=== PATIENT | female | born 1985 | race Caucasian/White ===

== ENCOUNTER 2017-03-24 19:22 | Emergency (ER) | payer MEDICAID, OTHER ==
[~2017-03-24] VITALS: Ht 154.9 cm; Wt 86.0 kg
[~2017-03-24 19:22] MED LIST: ACET325T26 PO; LORA1TAB PO; PHEN100C4 PO; PHEN125O11 PO; PHEN200C3 PO; PHEN30CA PO; QUET50TA5 PO; THIA50TA2 PO; VALP250C59 PO; VALP500S PO
[2017-03-24 19:24] VITALS: BP 127/85
== END 2017-03-24 20:11 | disposition home or self-care (01) ==
LOC: ED 20:02
DX: Z76.0 Encounter for issue of repeat prescription (principal); F17.210 Nicotine dependence, cigarettes, uncomplicated; Z88.1 Allergy status to other antibiotic agents; G40.909 Epilepsy, unspecified, not intractable, without status epilepticus
CPT/HCPCS: 99283; 99284

== ENCOUNTER 2018-01-31 19:11 | Emergency (ER) | payer MEDICAID ==
[~2018-01-31] VITALS: Ht 154.9 cm; Wt 92.8 kg
[2018-01-31 19:16] VITALS: BP 132/88
== END 2018-01-31 20:07 | disposition home or self-care (01) ==
LOC: ED 19:45
DX: F41.9 Anxiety disorder, unspecified (principal); Z76.0 Encounter for issue of repeat prescription; F32.9 Major depressive disorder, single episode, unspecified; G40.909 Epilepsy, unspecified, not intractable, without status epilepticus; Z90.49 Acquired absence of other specified parts of digestive tract
CPT/HCPCS: 99283

== ENCOUNTER 2019-01-01 10:45 | Emergency (ER) | payer MEDICAID ==
[~2019-01-01] VITALS: Ht 157.5 cm; Wt 96.8 kg
[~2019-01-01 10:45] MED LIST changes: -PHEN125O11 PO; +PHEN125O4 PO
[2019-01-01 10:57] VITALS: BP 122/77
== END 2019-01-01 11:40 | disposition home or self-care (01) ==
LOC: ED 11:17
DX: J34.0 Abscess, furuncle and carbuncle of nose (principal); G40.909 Epilepsy, unspecified, not intractable, without status epilepticus; Z90.49 Acquired absence of other specified parts of digestive tract
CPT/HCPCS: 99283

== ENCOUNTER 2020-09-27 14:49 | Emergency (ER) | payer SELFPAY ==
[~2020-09-27] VITALS: Ht 154.9 cm; Wt 70.0 kg
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
--- NOTE | 2020-09-27 15:03 | NUR ---
ERMD AT BEDSIDE FOR EVALUATION.
[2020-09-27] MEDS ORDERED: DIVALPROEX 500 MG TAB.ER.24H PO ONE (15:30)
[2020-09-27] MEDS ORDERED: DIVALPROEX 500 MG TAB.ER.24H ONE (15:30)
[2020-09-27 15:43] LABS: BASOPHILS % (AUTO) 1 % (0-1); EOSINOPHILS % (AUTO) 1 % (1-7); LYMPHOCYTES % (AUTO) 29 % (22-44); MEAN CORPUSCULAR HEMOGLOBIN 29.1 pg (27.0-34.8); MEAN CORPUSCULAR HGB CONC 34.2 g/dL (32.4-35.8); MEAN PLATELET VOLUME 6.8 fL (7.4-10.4); MONOCYTES % (AUTO) 8 % (2-9); NEUTROPHILS % (AUTO) 61 % (42-75); PLATELET COUNT 416 x10^3/uL (130-400); RED BLOOD COUNT 4.49 x10^6/uL (3.82-5.3); RED CELL DISTRIBUTION WIDTH 13.9 % (9.6-15.2)
[2020-09-27 15:51] LABS: MD NO
[2020-09-27 15:52] LABS: ALBUMIN 3.4 g/dL (3.4-5.0); ANION GAP 7 mmol/L (5-15); CALCIUM 8.4 mg/dL (8.5-10.1); CHLORIDE 106 mmol/L (98-107); CREATININE 0.63 mg/dL (0.55-1.02)
--- NOTE | 2020-09-27 16:19 | NUR ---
PATIENT RESTING IN GURNEY WITH EYES CLOSED, RESPIRATIONS EVEN AND UNLABORED, CONNECTED TO SCRATCH POLISHER, SEIZURE PRECAUTIONS IN PLACE, CALL LIGHT WITHIN REACH.
[2020-09-27 17:05] VITALS: BP 101/64
--- NOTE | 2020-09-27 17:21 | NUR ---
Patient given discharge instructions and prescription and they have confirmed that they understand the instructions. Taxi voucher provided to patient. Patient stable and ambulatory with steady gait from ED.
== END 2020-09-27 17:22 | disposition home or self-care (01) ==
LOC: EDBD 14:49 → MERGE 14:49 → ED 16:10
DX: R56.9 Unspecified convulsions (principal); R55 Syncope and collapse; Z90.49 Acquired absence of other specified parts of digestive tract; Z90.89 Acquired absence of other organs
CPT/HCPCS: 36415; 80048; 82040; 84703; 85025; 93005; 99284